=== PATIENT | male | born 1940 | race Caucasian/White ===

== ENCOUNTER → 2016-07-30 | Outpatient (CLI) | payer OTHER, MEDICARE ==
--- NOTE | 2016-07-30 13:59 | CR ---
EXAMINATION: Pelvis and right hip HISTORY: Pain COMPARISON: None TECHNIQUE: AP pelvis and 2 views of the right hip FINDINGS: There is no acute osseous abnormality or fracture. Right total hip hardware is demonstrate d in good position and alignment. The iliopectineal lines are intact. Bone mineralization appears no rmal. The SI joints are symmetric. IMPRESSION: Unremarkable right total hip hardware.
== END | disposition home or self-care (01) ==
LOC: MW.CHORTHO 08:50
PROVIDERS: ATTEND Physician Assistant
DX: Z47.1 Aftercare following joint replacement surgery (principal); Z96.641 Presence of right artificial hip joint
CPT/HCPCS: 73502-26-RT; 73502-RT

== ENCOUNTER 2017-11-10 16:07 | Emergency (ER) | payer MEDICARE, OTHER | END 2017-11-10 16:28 | disposition left against medical advice (07) | LOC: MW.ED 16:07 | DX: Z53.21 Procedure and treatment not carried out due to patient leaving prior to being seen by health care provider (principal) ==

== ENCOUNTER 2020-10-31 11:57 | Emergency (ER) | payer MEDICARE, OTHER ==
[2020-10-31] MEDS ORDERED: Sodium Chloride 0.9% 10 ML Syringe FLUSH PRN (12:25)
[2020-10-31] MEDS ORDERED: Sodium Chloride 0.9% 2.5 ML Syringe FLUSH PRN (12:25)
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
[2020-10-31 13:22] LABS: BLOOD UREA NITROGEN,BUN 15 mg/dL (7.0-18.0); CHLORIDE,CL 109 mmol/L (98-107); GLUCOSE RANDOM 136 mg/dL (74-106); POTASSIUM,K 3.7 mmol/L (3.5-5.1); SODIUM,NA 144 mmol/L (136-148)
== END 2020-10-31 17:12 | disposition home or self-care (01) ==
LOC: MW.ED 11:57
DX: G30.9 Alzheimer's disease, unspecified (principal); F02.81 Dementia in other diseases classified elsewhere, unspecified severity, with behavioral disturbance; K21.9 Gastro-esophageal reflux disease without esophagitis; I10 Essential (primary) hypertension; Z79.899 Other long term (current) drug therapy; Z20.822 Contact with and (suspected) exposure to COVID-19
CPT/HCPCS: 36415; 80053; 80305; 80307; 81003; 83735; 84443; 84484; 85025; 99285; U0002

== ENCOUNTER 2020-11-05 16:02 | Inpatient (IN) | payer MEDICARE, OTHER ==
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
[2020-11-05] MEDS ORDERED: ALPRAZolam 0.5 MG Tab PO ONE ×2 (17:45→17:46)
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
[2020-11-05 18:48] LABS: BLOOD UREA NITROGEN,BUN 17 mg/dL (7.0-18.0); CARBON DIOXIDE,CO2 25.2 mmol/L (21.0-32.0); CHLORIDE,CL 108 mmol/L (98-107); GLUCOSE RANDOM 144 mg/dL (74-106); POTASSIUM,K 4.1 mmol/L (3.5-5.1); SODIUM,NA 142 mmol/L (136-148)
[2020-11-05] MEDS ORDERED: Acetaminophen 325 MG Tab PO PRN (19:22)
[2020-11-05] MEDS ORDERED: hydrOXYzine HCl 25 MG Tab PO SCH (21:00)
[2020-11-06] MEDS: Losartan 50 MG Tab PO SCH (08:52)
[2020-11-06] MEDS: amLODIPine 5 MG Tab PO SCH (08:56)
[2020-11-06] MEDS: Omeprazole 20 MG Cap.CR PO SCH (08:57)
[2020-11-06] MEDS: ALPRAZolam 0.5 MG Tab PO SCH (08:57)
[2020-11-06] MEDS ORDERED: Pantoprazole 40 MG Tab.CR PO SCH (09:00)
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
[2020-11-06] MEDS: OLANZapine 5 MG Tab PO SCH (10:38)
--- NOTE | 2020-11-06 16:49 | PCM.PN ---
- General Info Date of Service: 11/06/20 Subjective Update: Patient states no concerns overnight. Patient denies fever, chills, nausea, vomiting abdominal pain. Patient is alert to person but upon questioning is not sure why he is in the hospital or what year it is. - Review of Systems General: Denies: Fever, Chills Pulmonary: Denies: Shortness of Breath Cardiovascular: Denies: Chest Pain, Dyspnea on Exertion Gastrointestinal: Denies: Abdominal Pain, Nausea, Vomiting Neurological: Denies: Confusion, Dizziness, Headache, Numbness - Patient Data Vitals - Most Recent: Last Vital Signs Temp 97.4 F 11/06/20 16:00 Pulse 70 11/06/20 16:00 Resp 16 11/06/20 16:00 BP 148/71 H 11/06/20 16:00 Pulse Ox 97 11/06/20 16:00 Weight - Most Recent: 181 lb 6.4 oz I&O - Last 24 Hours: Intake & Output 11/06/20 11/06/20 11/06/20 06:59 14:59 22:59 Intake Total 500 940 Output Total 0 0 Balance 500 940 Lab Results Last 24 Hours: Laboratory Results - last 24 hr 11/05/20 11/05/20 11/05/20 Range/Units 17:07 17:40 17:40 WBC 7.62 (4.0-11.0) K/uL RBC 4.15 L (4.50-5.90) M/uL Hgb 12.3 L (13.0-17.0) g/dL Hct 36.6 L (38.0-50.0) % MCV 88.2 (80.0-98.0) fL MCH 29.6 (27.0-32.0) pg MCHC 33.6 (31.0-37.0) g/dL RDW Std Deviation 46.4 (28.0-62.0) fl RDW Coeff of Masha 14 (11.0-15.0) % Plt Count 177 (150-400) K/uL MPV 10.00 (7.40-12.00) fL Neut % (Auto) 63.9 (48.0-80.0) % Lymph % (Auto) 24.4 (16.0-40.0) % [place] % (Auto) 10.1 (0.0-15.0) % Eos % (Auto) 1.3 (0.0-7.0) % Baso % (Auto) 0.3 (0.0-1.5) % Neut # (Auto) 4.9 (1.4-5.7) K/uL Lymph # (Auto) 1.9 (0.6-2.4) K/uL [place] # (Auto) 0.8 (0.0-0.8) K/uL Eos # (Auto) 0.1 (0.0-0.7) K/uL Baso # (Auto) 0.0 (0.0-0.1) K/uL Nucleated RBC % 0.0 /100WBC Nucleated RBCs # 0 K/uL Sodium 142 (136-148) mmol/L Potassium 4.1 (3.5-5.1) mmol/L Chloride 108 H (98-107) mmol/L Carbon Dioxide 25.2 (21.0-32.0) mmol/L BUN 17 (7.0-18.0) mg/dL Creatinine 1.1 (0.8-1.3) mg/dL Est Cr Clr Drug Dosing 50.91 mL/min Estimated GFR (MDRD) > 60.0 ml/min Glucose 144 H (74-106) mg/dL Calcium 8.7 (8.5-10.1) mg/dL Total Bilirubin 0.2 (0.2-1.0) mg/dL AST 20 (15-37) IU/L ALT 30 (14-63) IU/L Alkaline Phosphatase 82 (46-116) U/L Total Protein 6.3 L (6.4-8.2) g/dL Albumin 3.5 (3.4-5.0) g/dL Globulin 2.8 (2.6-4.0) g/dL Albumin/Globulin Ratio 1.2 (0.9-1.6) Urine Color YELLOW Urine Appearance CLEAR Urine pH 6.0 (5.0-8.0) Ur Specific [place] <= 1.005 (1.001-1.035) Urine Protein NEGATIVE (NEGATIVE) mg/dL Urine Glucose (UA) NEGATIVE (NEGATIVE) mg/dL Urine Ketones NEGATIVE (NEGATIVE) mg/dL Urine Occult Blood NEGATIVE (NEGATIVE) Urine Nitrite NEGATIVE (NEGATIVE) Urine Bilirubin NEGATIVE (NEGATIVE) Urine Urobilinogen 0.2 (<2.0) EU/dL Ur Leukocyte Esterase NEGATIVE (NEGATIVE) Med Orders - Current: Current Medications Acetaminophen (Acetaminophen 325 Mg Tab) 650 mg PO Q4H PRN PRN Reason: Pain (Mild 1-3)/fever Alprazolam (Alprazolam 0.5 Mg Tab) 1 mg PO DAILY [facility] Last Admin: 11/06/20 08:57 Dose: 1 mg Documented by: Amlodipine Besylate (Amlodipine 5 Mg Tab) 5 mg PO DAILY [facility] Last Admin: 11/06/20 08:56 Dose: 5 mg Documented by: Hydroxyzine HCl (Hydroxyzine Hcl 25 Mg Tab) 25 mg PO BEDTIME [facility] Last Admin: 11/05/20 20:41 Dose: 25 mg Documented by: Losartan Potassium (Losartan 50 Mg Tab) 50 mg PO DAILY [facility] Last Admin: 11/06/20 08:52 Dose: 50 mg Documented by: Olanzapine (Olanzapine 5 Mg Tab) 5 mg PO DAILY [facility] Last Admin: 11/06/20 10:38 Dose: 5 mg Documented by: Omeprazole (Omeprazole 20 Mg Cap.Cr) 20 mg PO ACBREAKFAST [facility] Last Admin: 11/06/20 08:57 Dose: 20 mg Documented by: Discontinued Medications Alprazolam (Alprazolam 0.5 Mg Tab) 0.5 mg PO NOW ONE Stop: 11/05/20 17:46 Alprazolam (Alprazolam 0.5 Mg Tab) 1 mg PO NOW ONE Stop: 11/05/20 17:47 Last Admin: 11/05/20 18:26 Dose: 1 mg Documented by: Pantoprazole Sodium (Pantoprazole 40 Mg Tab.Cr) 20 mg PO DAILY [facility] Quetiapine Fumarate (Quetiapine 50 Mg Tab) 50 mg PO BID [facility] Last Admin: 11/06/20 08:57 Dose: 50 mg Documented by: - Exam General: Alert Lungs: Clear to Auscultation, Normal Respiratory Effort Cardiovascular: Regular Rate, Regular Rhythm GI/Abdominal Exam: Soft, Non-Tender Extremities: No Pedal Edema Psy/Mental Status: Alert (Alert to person, not alert to place or time.) - Patient Data Lab Results Last 24 hrs: Laboratory Results - last 24 hr 11/05/20 11/05/20 11/05/20 Range/Units 17:07 17:40 17:40 WBC 7.62 (4.0-11.0) K/uL RBC 4.15 L (4.50-5.90) M/uL Hgb 12.3 L (13.0-17.0) g/dL Hct 36.6 L (38.0-50.0) % MCV 88.2 (80.0-98.0) fL MCH 29.6 (27.0-32.0) pg MCHC 33.6 (31.0-37.0) g/dL RDW Std Deviation 46.4 (28.0-62.0) fl RDW Coeff of Masha 14 (11.0-15.0) % Plt Count 177 (150-400) K/uL MPV 10.00 (7.40-12.00) fL Neut % (Auto) 63.9 (48.0-80.0) % Lymph % (Auto) 24.4 (16.0-40.0) % [place] % (Auto) 10.1 (0.0-15.0) % Eos % (Auto) 1.3 (0.0-7.0) % Baso % (Auto) 0.3 (0.0-1.5) % Neut # (Auto) 4.9 (1.4-5.7) K/uL Lymph # (Auto) 1.9 (0.6-2.4) K/uL [place] # (Auto) 0.8 (0.0-0.8) K/uL Eos # (Auto) 0.1 (0.0-0.7) K/uL Baso # (Auto) 0.0 (0.0-0.1) K/uL Nucleated RBC % 0.0 /100WBC Nucleated RBCs # 0 K/uL Sodium 142 (136-148) mmol/L Potassium 4.1 (3.5-5.1) mmol/L Chloride 108 H (98-107) mmol/L Carbon Dioxide 25.2 (21.0-32.0) mmol/L BUN 17 (7.0-18.0) mg/dL Creatinine 1.1 (0.8-1.3) mg/dL Est Cr Clr Drug Dosing 50.91 mL/min Estimated GFR (MDRD) > 60.0 ml/min Glucose 144 H (74-106) mg/dL Calcium 8.7 (8.5-10.1) mg/dL Total Bilirubin 0.2 (0.2-1.0) mg/dL AST 20 (15-37) IU/L ALT 30 (14-63) IU/L Alkaline Phosphatase 82 (46-116) U/L Total Protein 6.3 L (6.4-8.2) g/dL Albumin 3.5 (3.4-5.0) g/dL Globulin 2.8 (2.6-4.0) g/dL Albumin/Globulin Ratio 1.2 (0.9-1.6) Urine Color YELLOW Urine Appearance CLEAR Urine pH 6.0 (5.0-8.0) Ur Specific [place] <= 1.005 (1.001-1.035) Urine Protein NEGATIVE (NEGATIVE) mg/dL Urine Glucose (UA) NEGATIVE (NEGATIVE) mg/dL Urine Ketones NEGATIVE (NEGATIVE) mg/dL Urine Occult Blood NEGATIVE (NEGATIVE) Urine Nitrite NEGATIVE (NEGATIVE) Urine Bilirubin NEGATIVE (NEGATIVE) Urine Urobilinogen 0.2 (<2.0) EU/dL Ur Leukocyte Esterase NEGATIVE (NEGATIVE) Result Diagrams: 11/05/20 17:40 11/05/20 17:40 Sepsis Event Note - Evaluation Sepsis Screening Result: No Definite Risk - Focused Exam Vital Signs: Vital Signs Temp Pulse Resp BP BP Pulse Ox 11/06/20 16:00 97.4 F 70 16 148/71 H 97 11/06/20 11:01 97.0 F 72 18 146/70 H 97 11/06/20 08:56 159/81 H 11/06/20 08:52 159/81 H 11/06/20 08:00 96.8 F L 64 16 150/67 H 94 L - Problem List & Annotations (1) Hypertension SNOMED Code(s): 71365955 Code(s): I10 - ESSENTIAL (PRIMARY) HYPERTENSION Status: Acute Current Visit: Yes (2) GERD (gastroesophageal reflux disease) SNOMED Code(s): 150920592 Code(s): K21.9 - GASTRO-ESOPHAGEAL REFLUX DISEASE WITHOUT ESOPHAGITIS Status: Acute Current Visit: Yes (3) Dementia SNOMED Code(s): 29898257 Code(s): F03.90 - UNSPECIFIED DEMENTIA WITHOUT BEHAVIORAL DISTURBANCE Sta tus: Acute Current Visit: No Qualifiers: Dementia type: Alzheimer's Alzheimer's disease onset: unspecified onset Dementia behavioral disturbance: with behavioral disturbance Qualified Code(s): G30.9 - Alzheimer's disease, unspecified; F02.81 - Dementia in other diseases classified elsewhere with behavioral disturbance - Problem List Review Problem List Initiated/Reviewed/Updated: Yes - My Orders Last 24 Hours: My Active Orders 11/05/20 Dinner Regular Diet [DIET] 11/05/20 19:22 Acetaminophen [TylenoL] 650 mg PO Q4H PRN 11/05/20 19:23 Antiembolic Devices [RC] PER UNIT ROUTINE Oxygen Therapy [RC] PRN VTE/DVT Education [RC] PER UNIT ROUTINE Vital Signs [RC] Q4H Sequential Compression Device [OM.PC] Per Unit Routine 11/05/20 20:00 Communication Order [RC] ROUTINE 11/05/20 20:32 Consult to Case Management/Trouble Shooting Mechanic [CONS] Routine 11/05/20 21:00 hydrOXYzine HCL [Atarax] 25 mg PO BEDTIME 11/06/20 07:34 Code Status [Resuscitation Status] Routine 11/06/20 08:00 Omeprazole 20 mg PO ACBREAKFAST 11/06/20 09:00 ALPRAZolam [Xanax] 1 mg PO DAILY Losartan [Cozaar] 50 mg PO DAILY amLODIPine [Norvasc] 5 mg PO DAILY - Plan Plan:: Patient to be admitted until placed in a nursing facility with a memory unit. Will resume patient's home medications, alprazolam 1 mg, hydroxyzine 25 mg bedtime, D/C Seroquel. Hypertensionamlodipine 5 mg, losartan 50 mg GERDpantoprazole 20 mg Regular diet, SCDs. Recommendation from Dr. Patterson, neurology, discontinue Seroquel start Zyprexa 5 mg daily. Avoid benzodiazepines, recommend placement at a facility with a memory care unit. Will also get a psychiatric consultation from Dr. Sweet (pending)
[2020-11-06] MEDS ORDERED: Haloperidol Lactate 5 MG/ML SDV IM ONE ×2 (17:46→19:39)
[2020-11-06] MEDS ORDERED: LORazepam 2 MG/ML SDV ONE (17:52)
[2020-11-06] MEDS: hydrOXYzine HCl 25 MG Tab PO SCH ×2 (19:25→20:26)
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
[2020-11-06] MEDS ORDERED: diphenhydrAMINE 50 MG/ML SDV IM ONE (19:40)
[2020-11-06] MEDS ORDERED: LORazepam 1 MG Tab PO ONE (19:41)
[2020-11-07] MEDS: Omeprazole 20 MG Cap.CR PO SCH (08:19)
[2020-11-07] MEDS: ALPRAZolam 0.5 MG Tab PO SCH (08:19)
[2020-11-07] MEDS: OLANZapine 5 MG Tab PO SCH (08:19)
[2020-11-07] MEDS: Losartan 50 MG Tab PO SCH (08:21)
[2020-11-07] MEDS: amLODIPine 5 MG Tab PO SCH (08:23)
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
== END 2020-11-07 11:20 | DRG 57 ==
LOC: MW.ED 16:02 → MW.MS 18:03
PROVIDERS: ADMIT Internal Medicine; ATTEND Internal Medicine
DX: G30.9 Alzheimer's disease, unspecified (principal); F02.81 Dementia in other diseases classified elsewhere, unspecified severity, with behavioral disturbance; F02.80 Dementia in other diseases classified elsewhere, unspecified severity, without behavioral disturbance, psychotic disturbance, mood disturbance, and anxiety; K21.9 Gastro-esophageal reflux disease without esophagitis; I10 Essential (primary) hypertension; H91.90 Unspecified hearing loss, unspecified ear; F91.8 Other conduct disorders; Z20.822 Contact with and (suspected) exposure to COVID-19; Z79.899 Other long term (current) drug therapy
CPT/HCPCS: 36415; 80053; 81003; 85025; 99285; A9270-GY; J1200; J1630; J2060; U0002

== ENCOUNTER 2022-02-08 20:25 | Inpatient (IN) | payer MEDICARE ==
[2022-02-08 22:05] LABS: CORONAVIRUS COVID-19 NAA NEGATIVE (NEGATIVE); INFLUENZA A NAA NEGATIVE (NEGATIVE); INFLUENZA B NAA NEGATIVE (NEGATIVE)
[2022-02-08 22:07] LABS: BLOOD UREA NITROGEN,BUN 19 mg/dL (7.0-18.0); CARBON DIOXIDE,CO2 23.2 mmol/L (21.0-32.0); CHLORIDE,CL 106 mmol/L (98-107); GLUCOSE RANDOM 131 mg/dL (74-106); POTASSIUM,K 3.5 mmol/L (3.5-5.1); SODIUM,NA 141 mmol/L (136-148)
[2022-02-08 22:10] LABS: ESTIMATED GFR 76 mL/min (>60)
[2022-02-08] MEDS ORDERED: Cefepime 2 GM in Premix Bag 1 BAG IV ONE (22:47)
[2022-02-08] MEDS ORDERED: Sodium Chloride 0.9% 1,000 ML IV ONE (22:48)
[2022-02-08] MEDS ORDERED: VANCOmycin 1.5 GM/300 ML 1.5 GM in Premix Bag 1 BAG IV ONE (23:30)
[2022-02-08] MEDS ORDERED: Iopamidol 755 MG/ML 500 ML Multipack Bottle IVPUSH ONE (23:44)
[2022-02-09] MEDS ORDERED: Sodium Chloride 0.9% 1,000 ML IV ONE ×2 (00:19→00:20)
[2022-02-09] MEDS ORDERED: Acetaminophen 325 MG Tab PO PRN (02:09)
[2022-02-09] MEDS ORDERED: Magnesium Sulfate/Water 2 GM in Premix Bag 1 BAG IV ONE (06:50)
[2022-02-09 06:59] LABS: CARBON DIOXIDE,CO2 22.2 mmol/L (21.0-32.0); POTASSIUM,K 3.2 mmol/L (3.5-5.1)
[2022-02-09] MEDS ORDERED: Potassium Chloride 20 MEQ Tab.ER PO ONE (07:49)
[2022-02-09] MEDS: Pantoprazole 40 MG Tab.CR PO SCH (11:00)
[2022-02-09] MEDS: Enoxaparin 40 MG/0.4 ML Syringe SUBCUT SCH (11:00)
[2022-02-09] MEDS: Cefepime 2 GM in Premix Bag 1 BAG IV SCH ×2 (11:30→18:21)
[2022-02-09] MEDS ORDERED: OLANZapine 5 MG Tab PO SCH (12:00)
[2022-02-09] MEDS: Donepezil 10 MG Tab PO SCH (13:05)
[2022-02-09] MEDS ORDERED: Albuterol/Ipratropium 3.0-0.5 MG/3 ML Neb Soln NEB PRN (13:21)
[2022-02-09] MEDS: Sodium Chloride 0.9% 1,000 ML IV SCH (15:39)
[2022-02-09] MEDS ORDERED: QUEtiapine 100 MG Tab PO SCH (21:00)
[2022-02-09] MEDS ORDERED: hydrOXYzine HCl 25 MG Tab PO SCH (21:00)
[2022-02-10] MEDS ORDERED: LORazepam 1 MG Tab PO ONE (00:15)
[2022-02-10] MEDS: Sodium Chloride 0.9% 1,000 ML IV SCH (00:33)
[2022-02-10] MEDS: Cefepime 2 GM in Premix Bag 1 BAG IV SCH ×2 (02:06→10:06)
[2022-02-10] MEDS ORDERED: Melatonin 3 MG Tab PO ONE (02:30)
[2022-02-10 06:48] LABS: CARBON DIOXIDE,CO2 21.2 mmol/L (21.0-32.0); POTASSIUM,K 3.8 mmol/L (3.5-5.1)
[2022-02-10] MEDS: Pantoprazole 40 MG Tab.CR PO SCH (08:20)
[2022-02-10] MEDS: Donepezil 10 MG Tab PO SCH (08:21)
[2022-02-10] MEDS ORDERED: amLODIPine 5 MG Tab PO SCH (09:00)
[2022-02-10] MEDS ORDERED: Losartan 50 MG Tab PO SCH (09:00)
[2022-02-10] MEDS: Enoxaparin 40 MG/0.4 ML Syringe SUBCUT SCH (10:05)
[2022-02-10] MEDS ORDERED: Levofloxacin 750 MG Tab PO SCH (20:00)
== END 2022-02-10 21:00 | disposition home or self-care (01) | DRG 864 ==
LOC: MW.ED 20:25 → MW.MS 02-09 00:20
PROVIDERS: ADMIT Internal Medicine; ATTEND Internal Medicine
DX: R50.9 Fever, unspecified (principal); R65.10 Systemic inflammatory response syndrome (SIRS) of non-infectious origin without acute organ dysfunction; F02.811 Dementia in other diseases classified elsewhere, unspecified severity, with agitation; H91.90 Unspecified hearing loss, unspecified ear; F03.90 Unspecified dementia, unspecified severity, without behavioral disturbance, psychotic disturbance, mood disturbance, and anxiety; K21.9 Gastro-esophageal reflux disease without esophagitis; G30.9 Alzheimer's disease, unspecified; Z96.649 Presence of unspecified artificial hip joint; Z20.822 Contact with and (suspected) exposure to COVID-19; I10 Essential (primary) hypertension; R00.1 Bradycardia, unspecified; Z79.899 Other long term (current) drug therapy; Z66 Do not resuscitate
CPT/HCPCS: 0240U; 36415; 70450; 71045; 71260; 74177; 80053; 80202; 81003; 82607; 82803; 82947; 83605; 83735; 84443; 84484; 85025; 85610; 85730; 86140; 86592; 87040; 93005; 94640; 97162; 96365; 96375; 99285-25; A9270-GY; J0692; J1650; J3370; J3475; J7030; J7050; J7620-GY; Q9967

== ENCOUNTER 2023-10-17 23:08 | Emergency (ER) | payer MEDICARE | END 2023-10-18 01:20 | disposition home or self-care (01) | LOC: MW.ED 23:08 | DX: S09.90XA Unspecified injury of head, initial encounter (principal); I10 Essential (primary) hypertension; Z79.899 Other long term (current) drug therapy; Z75.8 Other problems related to medical facilities and other health care; W18.30XA Fall on same level, unspecified, initial encounter; Y92.002 Bathroom of unspecified non-institutional (private) residence as the place of occurrence of the external cause | CPT/HCPCS: 70450; 70450-26; 99282; 99284 ==

== ENCOUNTER 2023-10-18 13:41 | Emergency (ER) | payer MEDICARE ==
[2023-10-18 15:02] LABS: BASOPHILS PERCENT AUTO 0.4 % (0.0-1.0); EOSINOPHILS PERCENT AUTO 0.3 % (0.0-6.0); HEMATOCRIT 40.6 % (42.0-52.0); HEMOGLOBIN 13.6 g/dL (14.0-18.0); IMMATURE GRAN PERCENT AUTO 0.3 % (0.0-0.4); LYMPHOCYTES PERCENT AUTO 21.9 % (24.0-44.0); MEAN CORPUSCULAR HEMOGLOBIN 29.5 pg (28.0-32.0); MEAN CORPUSCULAR HGB CONC 33.5 g/dL (32.0-36.0); MEAN CORPUSCULAR VOLUME 88.1 fL (83.0-99.0); MEAN PLATELET VOLUME 9.9 fL (9.4-12.4); MONOCYTES PERCENT AUTO 9.6 % (0.0-8.0); NEUTROPHILS PERCENT AUTO 67.5 % (41.0-71.0); PLATELET COUNT,PLT 135 K/uL (150-400); RED BLOOD CELL COUNT 4.61 M/uL (4.52-5.90); WHITE BLOOD CELL COUNT,WBC 11.21 K/uL (3.9-11.3)
[2023-10-18 15:03] LABS: BASOPHILS ABSOLUTE AUTO 0.05 K/uL (0.00-0.20); EOSINOPHILS ABSOLUTE AUTO 0.03 K/uL (0.00-0.45); IMMATURE GRAN ABSOLUTE AUTO 0.03 K/uL (0.00-0.05); LYMPHOCYTES ABSOLUTE AUTO 2.45 K/uL (1.00-4.80); MONOCYTES ABSOLUTE AUTO 1.08 K/uL (0.00-0.80); NEUTROPHILS ABSOLUTE AUTO 7.57 K/uL (1.80-7.70)
[2023-10-18 15:05] LABS: A/G RATIO 1.2 (0.9-1.6); ALBUMIN 3.3 g/dL (3.4-5.0); BILIRUBIN TOTAL 0.6 mg/dL (0.2-1.0); CALCIUM 8.7 mg/dL (8.5-10.1); CARBON DIOXIDE,CO2 22.3 mmol/L (21.0-32.0); CREATININE 1.1 mg/dL (0.8-1.3); EST CRCL DRUG DOSING (CG) 46.72 mL/min; POTASSIUM,K 3.9 mmol/L (3.5-5.1); PROTEIN TOTAL,TP 6.1 g/dL (6.4-8.2)
[2023-10-18 15:35] LABS: APPEARANCE,URINE CLEAR; BILIRUBIN,URINE NEGATIVE (NEGATIVE); COLOR,URINE YELLOW; GLUCOSE,URINE NEGATIVE (NEGATIVE); KETONES,URINE NEGATIVE (NEGATIVE); LEUKOCYTE ESTERASE,URINE NEGATIVE (NEGATIVE); NITRITE,URINE NEGATIVE (NEGATIVE); OCCULT BLOOD,URINE NEGATIVE (NEGATIVE); PROTEIN,URINE NEGATIVE (NEGATIVE); UROBILINOGEN,URINE 0.2 EU/dL (<2.0)
== END 2023-10-18 17:23 | disposition home or self-care (01) ==
LOC: MW.ED 13:41
DX: I44.0 Atrioventricular block, first degree (principal); I10 Essential (primary) hypertension; Z79.899 Other long term (current) drug therapy; Z75.8 Other problems related to medical facilities and other health care
CPT/HCPCS: 36415; 71045; 71045-26; 80053; 81003; 84484; 85025; 93005; 93010; 99283; 99285